=== PATIENT | female | born 1980 ===

== ENCOUNTER → 2018-01-27 | Outpatient (CLI) | payer OTHER | LOC: MC.RAD 12:27 | DX: D24.1 Benign neoplasm of right breast (principal); N60.02 Solitary cyst of left breast ==

== ENCOUNTER → 2022-09-29 | Outpatient (CLI) | payer OTHER | LOC: MC.RAD 13:57 | DX: Z12.31 Encounter for screening mammogram for malignant neoplasm of breast (principal); N63.21 Unspecified lump in the left breast, upper outer quadrant ==

== ENCOUNTER → 2022-10-02 | Outpatient (CLI) | payer OTHER | LOC: MC.RAD 10:56 | DX: N63.21 Unspecified lump in the left breast, upper outer quadrant (principal) ==

== ENCOUNTER → 2024-04-19 | Outpatient (CLI) | payer OTHER | LOC: MC.RAD 08:00 | DX: Z12.31 Encounter for screening mammogram for malignant neoplasm of breast (principal); N63.20 Unspecified lump in the left breast, unspecified quadrant ==